=== PATIENT | male | born 1955 | race Caucasian/White ===

== ENCOUNTER 2024-06-30 17:34 | Inpatient (IN) | payer BC ==
[2024-06-30] VITALS (11 sets, daily range): BP systolic 138–171; BP diastolic 60–74; PULSE 107–118; RESP 13–25; TEMP 98.1–98.3; O2SAT 99
[~2024-06-30] VITALS: Ht 170.2 cm; Wt 77.9 kg
[~2024-06-30 17:34] MED LIST: ATOR-507 PO; ONDA-188 PO; PANT40TA57 PO
[2024-06-30 18:31] LABS: Hematocrit 16.3 % (41.0-53.0); Mean Corpuscular Hemoglobin 32.2 pg (28.0-32.0); Mean Corpuscular Hgb Conc. 32.3 g/dL (32.0-36.0); Mean Corpuscular Volume 99.8 fL (80.0-100.0); Red Blood Cells 1.63 10^6/uL (4.5-5.90); Red Cell Distribution Width 16.8 % (11.8-14.3); White Blood Cell 18.8 10^3/uL (4.4-10.8)
[2024-06-30 18:37] LABS: Hemoglobin 5.3 g/dL (13.5-17.5)
[2024-06-30 18:38] LABS: Basophils % (manual) 0 (0.0-2.0); Blast Cells 0; Eosinophils % (manual) 0 (0-7); Myelocytes % 0; Promyelocytes % 0; Reactive Lymphocytes 0
[2024-06-30 18:47] LABS: Chloride 100 mmol/L (98-107); Potassium 4.5 mmol/L (3.5-5.1); Sodium 137 mmol/L (136-145)
[2024-06-30 18:48] LABS: Anion Gap 14 (5-15); Calcium 8.9 mg/dL (8.7-10.4); Carbon Dioxide 23 mmol/L (20-30)
[2024-06-30 18:53] LABS: BUN/Creatinine Ratio 17.6 (10.0-20.0); Glucose 240 mg/dL (74-106)
[2024-06-30 19:06] LABS: Blood Urea Nitrogen 89 mg/dL (9-23)
[2024-06-30 19:17] LABS: Band Neutrophils % (manual) 5; Lymphocytes % (manual) 6 (10.0-50.0); Metamyelocytes % 3; Monocytes % (manual) 6 (0-12)
[2024-06-30 19:19] LABS: Anisocytosis Slight; Large Platelets FEW; Platelet Estimate Adequate; Polychromasia Slight
[2024-06-30] MEDS: ONDANSETRON HCL 4 MG/2 ML VIAL IV ONE (20:33)
[2024-06-30 20:35] LABS: Urine Bacteria None Seen /hpf (None Seen)
[2024-06-30 20:56] LABS: Urine Blood Negative /uL (Negative); Urine Clarity Clear (Clear); Urine Color Light-Yellow (Yellow); Urine Protein, UAD 2+ (Negative); Urine Specific Gravity 1.015 (1.001-1.035); Urine Urobilinogen Normal (Negative); Urine WBC 9 /hpf (0 - 3); Urine pH 6.5 (5.0-9.0)
[2024-06-30] MEDS ORDERED: NITROGLYCERIN 0.4 MG SL TAB SL PRN (22:30)
[2024-06-30] MEDS ORDERED: DEXTROSE (50%) 50ML SYRG IV PRN (22:30)
[2024-06-30] MEDS ORDERED: MORPHINE SULFATE INJ 2 MG/ml SYRG IV PRN (22:30)
[2024-06-30 23:09] LABS: Lactic Acid w/Reflex 4.9 mmol/L (0.4-2.0)
[2024-06-30 23:10] LABS: INR 1.13 (0.9-1.15); Partial Thromboplastin Time 27.1 SEC (24.5-34.5); Prothrombin Time 11.9 sec (9.3-11.8)
[2024-06-30] MEDS: TEMAZEPAM 15 MG CAP PO ONE (23:15)
[2024-06-30] MEDS: ONDANSETRON HCL 4 MG/2 ML VIAL IV PRN (23:15)
[2024-06-30] MEDS: PANTOPRAZOLE 40 MG/10 ML VIAL INJ IV ONE (23:16)
[2024-07-01] VITALS (10 sets, daily range): BP systolic 144–158; BP diastolic 61–68; PULSE 86–109; RESP 16–25; TEMP 98.1–98.4; O2SAT 90–100
[2024-07-01] MEDS: ACCU-CHEK COMFORT CURVE STRIP VI SCH (00:07)
[2024-07-01] MEDS: InsuLIN REG 1unit/0.01ml Soln (100units/ml) SC SCH (00:08)
[2024-07-01 03:11] LABS: Eosinophils # (auto) 0 10 ^3/uL (0-0.8); Hemoglobin 8.1 g/dL (13.5-17.5); Neutrophils # (auto) 18.6 10 ^3/uL (1.6-8.6)
[2024-07-01 03:13] LABS: Basophils # (auto) 0 10 ^3/uL (0-0.2); Eosinophils % (auto) 0.2 % (0.0-7.0); Hematocrit 24.6 % (41.0-53.0); Lymphocytes # (auto) 0.5 10 ^3/uL (0.4-5.4); Lymphocytes % (auto) 2.3 % (10.0-50.0); Mean Corpuscular Hemoglobin 31.3 pg (28.0-32.0); Mean Corpuscular Volume 94.9 fL (80.0-100.0); Monocytes # (auto) 1.1 10 ^3/uL (0-1.3); Monocytes % (auto) 5.5 % (0.0-12.0); Nucleated Red Blood Cells % 0.5 %; Red Cell Distribution Width 15.8 % (11.8-14.3); White Blood Cell 20.3 10^3/uL (4.4-10.8)
[2024-07-01 03:24] LABS: Albumin 3.7 g/dL (3.2-4.8); Alkaline Phosphatase 76 U/L (46-116); Anion Gap 14 (5-15); Aspartate Aminotransferase 40 U/L (13-40); BUN/Creatinine Ratio 18.4 (10.0-20.0); Calcium 8.6 mg/dL (8.7-10.4); Carbon Dioxide 24 mmol/L (20-30); Chloride 101 mmol/L (98-107); Glucose 261 mg/dL (74-106); Potassium 4.6 mmol/L (3.5-5.1); Sodium 139 mmol/L (136-145); Total Protein 6.3 g/dL (5.7-8.2)
[2024-07-01 03:26] LABS: Alanine Aminotransferase < 9 U/L (7-40); Blood Urea Nitrogen 99 mg/dL (9-23)
[2024-07-01] MEDS ORDERED: ALBUTEROL SULF 2.5 MG/0.5ML(0.5%) NEB SOLN NEB PRN (04:45)
[2024-07-01] MEDS: METOPROLOL TARTRATE 25 MG TAB PO ONE (05:23)
[2024-07-01] MEDS: cefTRIAXone 1GM/50ML D5W 50 ML IV ONE (05:24)
[2024-07-01 09:09] LABS: Triglycerides 284 mg/dL (< 150)
[2024-07-01 09:10] LABS: LDL Cholesterol 113 mg/dL (< 100)
[2024-07-01 09:11] LABS: Cholesterol 203 mg/dL (< 200); HDL Cholesterol 28 mg/dL (40-59)
[2024-07-01] MEDS: FUROSEMIDE 40 MG/4 ML VIAL IV ONE (09:30)
[2024-07-01] MEDS: AZITHROMYCIN 500MG/ 250ML 250 ML IV SCH (10:00)
[2024-07-01] MEDS: SODIUM CHL 0.9% 1000 ML BAG XX ONE ×2 (10:00→10:45)
[2024-07-01] MEDS: METOPROLOL TARTRATE 25 MG TAB PO SCH (10:00)
[2024-07-01] MEDS: PANTOPRAZOLE 40 MG/10 ML VIAL INJ IV SCH (10:00)
[2024-07-01] MEDS: ASPirin 81 mg TAB PO ONE (10:15)
[2024-07-01] MEDS: amLODIPine BESYLATE 5 MG TAB PO ONE (10:15)
[2024-07-01] MEDS ORDERED: APIX2.5T PO (11:32)
[2024-07-01] MEDS ORDERED: SEVE800T8 PO (11:32)
[2024-07-01] MEDS ORDERED: MIDO10TA3 PO (11:32)
[2024-07-01] MEDS: EPOETIN ALFA-EPBX 10,000 UNIT/1ML VIAL SC ONE (20:57)
[2024-07-01] MEDS: ATORVASTATIN 20 MG TAB PO SCH (21:59)
[2024-07-02] VITALS (10 sets, daily range): BP systolic 118–150; BP diastolic 42–66; PULSE 84–96; RESP 14–20; TEMP 97.8–98.5; O2SAT 95–100
[2024-07-02] MEDS: TEMAZEPAM 15 MG CAP PO PRN (01:19)
[2024-07-02 09:30] LABS: Hepatitis B Surface Antigen Negative (Negative)
[2024-07-02 09:51] LABS: Hepatitis B Core IgM Negative; Hepatitis C Antibody Negative (Negative)
[2024-07-02 09:52] LABS: Hepatitis A Ab IgM Negative
[2024-07-02] MEDS: ASPirin 81 mg TAB PO SCH (09:56)
[2024-07-02] MEDS: amLODIPine BESYLATE 5 MG TAB PO SCH (09:57)
[2024-07-02] MEDS: cefTRIAXone 1GM/50ML D5W 50 ML IV SCH (09:57)
[2024-07-03] VITALS (9 sets, daily range): BP systolic 107–149; BP diastolic 40–81; PULSE 78–97; RESP 16–20; TEMP 97.6–98.6; O2SAT 94–99
[2024-07-03] MEDS ORDERED: HEPARIN SODIUM (PORCINE) 5000 UNITS/ML 1ML VIAL IV ONE (09:30)
[2024-07-03] MEDS: ACETAMINOPHEN 325 MG TAB PO PRN (10:35)
[2024-07-03] MEDS: EPOETIN ALFA-EPBX 10,000 UNIT/1ML VIAL SC ONE ×2 (21:00→22:11)
[2024-07-04] VITALS (13 sets, daily range): BP systolic 89–127; BP diastolic 37–68; PULSE 65–98; RESP 16–20; TEMP 98–98.4; O2SAT 93–99
[2024-07-04 06:41] LABS: Hematocrit 18.6 % (41.0-53.0)
[2024-07-04 06:45] LABS: Hemoglobin 6.2 g/dL (13.5-17.5)
[2024-07-04 06:47] LABS: % Iron Saturation 14.9 % (20-55)
[2024-07-04] MEDS: SODIUM CHL 0.9% 1000 ML BAG XX ONE (07:26)
[2024-07-04] MEDS ORDERED: MIDAZOLAM HCL 2MG/2ML 2ml VIAL (1mg/ml) ONE (11:45)
[2024-07-04] MEDS ORDERED: PROPOFOL 10 MG/ML 20 ML IV ONE (12:01)
[2024-07-04] MEDS: ONDANSETRON HCL 4 MG/2 ML VIAL IV ONE (12:54)
[2024-07-04 17:15] LABS: Hematocrit 23.6 % (41.0-53.0)
[2024-07-04] MEDS: PANTOPRAZOLE 40 MG/10 ML VIAL INJ IV SCH (23:40)
[2024-07-05] VITALS (10 sets, daily range): BP systolic 112–139; BP diastolic 39–71; PULSE 54–91; RESP 16–20; TEMP 97.6–98; O2SAT 93–100
[2024-07-05 05:12] LABS: Basophils # (auto) 0 10 ^3/uL (0-0.2); Basophils % (auto) 0.3 % (0.0-2.0); Eosinophils # (auto) 0.2 10 ^3/uL (0-0.8); Hemoglobin 7.5 g/dL (13.5-17.5)
[2024-07-05 05:15] LABS: Eosinophils % (auto) 1.6 % (0.0-7.0); Hematocrit 22.2 % (41.0-53.0); Lymphocytes # (auto) 0.4 10 ^3/uL (0.4-5.4); Lymphocytes % (auto) 3.7 % (10.0-50.0); Mean Corpuscular Hemoglobin 30.8 pg (28.0-32.0); Mean Corpuscular Hgb Conc. 33.9 g/dL (32.0-36.0); Mean Corpuscular Volume 90.8 fL (80.0-100.0); Monocytes % (auto) 8.3 % (0.0-12.0); Neutrophils # (auto) 10.4 10 ^3/uL (1.6-8.6); Neutrophils % (auto) 86.1 % (37.0-80.0); Nucleated Red Blood Cells % 0.3 %; Red Blood Cells 2.44 10^6/uL (4.5-5.90); Red Cell Distribution Width 17.8 % (11.8-14.3)
[2024-07-05 05:24] LABS: Alkaline Phosphatase 67 U/L (46-116); Anion Gap 9 (5-15); Aspartate Aminotransferase 11 U/L (13-40); Bilirubin, Total 0.5 mg/dL (0.2-1.0); Blood Urea Nitrogen 43 mg/dL (9-23); Carbon Dioxide 25 mmol/L (20-30); Chloride 103 mmol/L (98-107); Glucose 169 mg/dL (74-106); Magnesium 1.9 mg/dL (1.6-2.6); Potassium 3.7 mmol/L (3.5-5.1); Sodium 137 mmol/L (136-145); Total Protein 5.3 g/dL (5.7-8.2)
[2024-07-05 05:25] LABS: Alanine Aminotransferase < 9 U/L (7-40)
[2024-07-05] MEDS: HYDROcodone-ACET 5/325MG TAB PO PRN (12:24)
[2024-07-06] VITALS (7 sets, daily range): BP systolic 119–148; BP diastolic 32–60; PULSE 73–85; RESP 16–20; TEMP 97.9–98.1; O2SAT 93–98
[2024-07-06 06:15] LABS: Basophils # (auto) 0.1 10 ^3/uL (0-0.2); Basophils % (auto) 0.6 % (0.0-2.0); Eosinophils # (auto) 0.3 10 ^3/uL (0-0.8); Eosinophils % (auto) 2.8 % (0.0-7.0); Hematocrit 21.8 % (41.0-53.0); Hemoglobin 7.3 g/dL (13.5-17.5); Lymphocytes # (auto) 0.5 10 ^3/uL (0.4-5.4); Mean Corpuscular Hemoglobin 31.1 pg (28.0-32.0); Mean Corpuscular Hgb Conc. 33.6 g/dL (32.0-36.0); Mean Corpuscular Volume 92.4 fL (80.0-100.0); Monocytes # (auto) 0.9 10 ^3/uL (0-1.3); Monocytes % (auto) 8.6 % (0.0-12.0); Neutrophils # (auto) 9.1 10 ^3/uL (1.6-8.6); Nucleated Red Blood Cells % 0.4 %; Red Blood Cells 2.36 10^6/uL (4.5-5.90); White Blood Cell 10.9 10^3/uL (4.4-10.8)
[2024-07-06 06:34] LABS: Chloride 103 mmol/L (98-107); Potassium 3.8 mmol/L (3.5-5.1); Sodium 139 mmol/L (136-145)
[2024-07-06 06:40] LABS: BUN/Creatinine Ratio 11.9 (10.0-20.0)
[2024-07-06 06:49] LABS: Blood Urea Nitrogen 53 mg/dL (9-23)
[2024-07-06 07:00] LABS: Glucose 151 mg/dL (74-106)
[2024-07-06 07:35] LABS: Anion Gap 12 (5-15); Carbon Dioxide 24 mmol/L (20-30)
[2024-07-06] MEDS ORDERED: KETAMINE 50mg/ML 1ml syringe IM ONE (15:02)
== END 2024-07-06 15:03 | disposition home or self-care (01) | DRG 871 ==
LOC: EDBD 17:34 → ER 17:34 → TELE 22:34 → TELE-WESTW 07-01 23:40
PROVIDERS: ADMIT Nurse Practitioner; ATTEND Internal Medicine Geriatric Medicine
PROC: 30233N1 Transfusion of Nonautologous Red Blood Cells into Peripheral Vein, Percutaneous Approach (ICD-10-PCS; 2024-06-30)
PROC: 5A1D70Z Performance of Urinary Filtration, Intermittent, Less than 6 Hours Per Day (ICD-10-PCS; 2024-07-01)
PROC: 0DB78ZX Excision of Stomach, Pylorus, Via Natural or Artificial Opening Endoscopic, Diagnostic (ICD-10-PCS; principal; 2024-07-04 11:38)
DX: A41.9 Sepsis, unspecified organism (principal); I21.4 Non-ST elevation (NSTEMI) myocardial infarction; J18.9 Pneumonia, unspecified organism; K20.91 Esophagitis, unspecified with bleeding; K29.71 Gastritis, unspecified, with bleeding; N18.6 End stage renal disease; J44.0 Chronic obstructive pulmonary disease with (acute) lower respiratory infection; D62 Acute posthemorrhagic anemia; J90 Pleural effusion, not elsewhere classified; I12.0 Hypertensive chronic kidney disease with stage 5 chronic kidney disease or end stage renal disease; E11.22 Type 2 diabetes mellitus with diabetic chronic kidney disease; E78.5 Hyperlipidemia, unspecified; D63.1 Anemia in chronic kidney disease; K44.9 Diaphragmatic hernia without obstruction or gangrene; K31.819 Angiodysplasia of stomach and duodenum without bleeding; Z99.2 Dependence on renal dialysis; Z98.61 Coronary angioplasty status; Z88.8 Allergy status to other drugs, medicaments and biological substances
CPT/HCPCS: 36415; 71045; 80048; 80053; 80061; 80074; 81001; 82270; 82728; 82962; 83036; 83540; 83550; 83605; 83735; 83880; 84484; 85007; 85014; 85018; 85025; 85027; 85610; 85730; 86850; 86900; 86901; 86920; 87040; 87081; 90935; 93005; 93306; 93925; 93970; 99291; G0378; J1642; J1815; J2250; J2405; J2470; J2704